=== PATIENT | male | born 1960 | race Caucasian/White ===

== ENCOUNTER 2016-12-03 11:02 | Outpatient (CLI) | payer OTHER | END 2016-12-03 23:00 | LOC: LAB SRH 11:02 | DX: N39.0 Urinary tract infection, site not specified (principal) | CPT/HCPCS: 90004 ==

== ENCOUNTER 2016-12-03 11:05 | Outpatient (CLI) | payer OTHER | END 2016-12-03 23:00 | LOC: LAB SRH 11:05 | DX: M54.5 Low back pain (principal) | CPT/HCPCS: 92630 ==

== ENCOUNTER 2016-12-10 14:02 | Outpatient (CLI) | payer OTHER | END 2016-12-10 23:00 | LOC: LAB SRH 14:02 | DX: N30.01 Acute cystitis with hematuria (principal) | CPT/HCPCS: 90469 ==

== ENCOUNTER 2017-01-21 21:49 | Emergency (ER) | payer OTHER ==
--- NOTE | 2017-01-21 23:48 | ED CLINICAL REPORT ---
Clinical Report - Physicians/Mid Levels [facility] [address] [place] [address] 01/21/2017 22:14 [id number] Time Seen: 22:23 Jan 21 2017. Arrived- By private vehicle. Historian- patient. CPT: ER phys charges level 3 (#[id number]). HISTORY OF PRESENT ILLNESS Chief Complaint: catheter leaking. This started today and is still present. At its maximum, severity described as moderate. When seen in the E.D., severity described as moderate. Modifying factors. Not worsened by anything. Not relieved by anything. No current or associated symptoms. Similar symptoms previously: As bad. Diagnosis: (failed west.). Recent medical care: Not recently seen/assessed. REVIEW OF SYSTEMS No fever, sore throat, sinus drainage, nasal congestion or cough. No difficulty breathing, chest pain, abdominal pain, nausea or vomiting. No diarrhea, bloody stools, chills, difficulty with urination or skin rash. No back pain or calf pain. All systems otherwise negative, except as recorded above. PAST HISTORY Quadraplegia. Allergic Reaction. Diabetes Mellitus. Diabetes Mellitus Type 2. West Catheter. UTI - Urinary Tract Infection. Urinary Retention. Nerve Injury. Hypertension. Quadriplegic. Headache. Depression. Immunizations. West Catheter Replacement. Pneumonia. C2 fracture-T. --22:18 Martin Espinoza R.N. ADDITIONAL SURGERIES: Back Surgery. Knee Surgery. Neck Surgery. Nerve transpant right arm. Rhinoplasty. Shoulder Surgery. Medications: SUMAtriptan Succinate Oral (Tablet 100 mg), 3x a day as needed. Wellbutrin Oral 150 mg, daily (ER). Baclofen Oral. DULoxetine HCl Oral. HydrALAZINE HCl Oral (Tablet 10 mg), TID. LevETIRAcetam Oral 500 mg, 2x a day. Lidoderm External. Lyrica Oral (Capsule 300 mg), BID. MetFORMIN HCl Oral 1000MG, 2x a day. Nortriptyline HCl Oral (Capsule 25 mg) 1 capsule, at bedtime. OxyCODONE HCl Oral 20 mg, as needed. Allergies: No Known Drug Allergy. SOCIAL HISTORY No alcohol use or drug use. ADDITIONAL NOTES The nursing notes have been reviewed. PHYSICAL EXAM Vital Signs: 01/21/2017 22:16 BP: 83/48. HR: 81. RR: 20. O2 saturation: 91%. Temp: 98.3 F. Pain level now: 0/10. Appearance: Alert. No acute distress. CVS: Normal heart rate and rhythm. Respiratory: No respiratory distress. Abdomen: Nontender. (Suprapubic catheter. Leaking around catheter.). Back: Normal inspection. No CVA tenderness. Skin: No rash. Neuro: Oriented X 3. PROGRESS AND PROCEDURES Course of Care: Last catheter placed a week ago. Usually has to change catheters about every month or two. RN is able to flush the catheter with good return. Bladder scan shows no urine in bladder. RN notes that the obstruction is functional and related to the position of the patient. Patient/family counseled. Disposition: Discharged. Condition: stable and improved. CLINICAL IMPRESSION Obstructed west resolved. INSTRUCTIONS Drink plenty of fluids. Warnings: GENERAL WARNINGS: Return or contact your physician immediately if your condition worsens or changes unexpectedly, if not improving as expected, or if other problems arise. Your Current Medications: CONTINUE TAKING THE FOLLOWING MEDICATIONS: Baclofen Oral. DULoxetine HCl Oral. HydrALAZINE HCl Oral : Tablet 10 mg, TID. LevETIRAcetam Oral : 500 mg 2x a day. Lidoderm External. Lyrica Oral : Capsule 300 mg, BID. MetFORMIN HCl Oral : 1000MG 2x a day. Nortriptyline HCl Oral : Capsule 25 mg, 1 capsule at bedtime. OxyCODONE HCl Oral : 20 mg, prn. SUMAtriptan Succinate Oral : Tablet 100 mg, 3x a day, prn. Wellbutrin Oral : 150 mg daily, ER. Follow-up: Follow up with your doctor as needed. Understanding of the discharge instructions verbalized by patient and family. (Electronically signed by Daniel Evans MD 01/24/2017 11:19)
--- NOTE | 2017-01-21 23:48 | ED CLINICAL REPORT ---
Clinical Report - Physicians/Mid Levels [facility] [address] [place] [address] 01/21/2017 22:14 [id number] Time Seen: 22:23 Jan 21 2017. Arrived- By private vehicle. Historian- patient. CPT: ER phys charges level 3 (#[id number]). HISTORY OF PRESENT ILLNESS Chief Complaint: catheter leaking. This started today and is still present. At its maximum, severity described as moderate. When seen in the E.D., severity described as moderate. Modifying factors. Not worsened by anything. Not relieved by anything. No current or associated symptoms. Similar symptoms previously: As bad. Diagnosis: (failed west.). Recent medical care: Not recently seen/assessed. REVIEW OF SYSTEMS No fever, sore throat, sinus drainage, nasal congestion or cough. No difficulty breathing, chest pain, abdominal pain, nausea or vomiting. No diarrhea, bloody stools, chills, difficulty with urination or skin rash. No back pain or calf pain. All systems otherwise negative, except as recorded above. PAST HISTORY Quadraplegia. Allergic Reaction. Diabetes Mellitus. Diabetes Mellitus Type 2. West Catheter. UTI - Urinary Tract Infection. Urinary Retention. Nerve Injury. Hypertension. Quadriplegic. Headache. Depression. Immunizations. West Catheter Replacement. Pneumonia. C2 fracture-T. --22:18 Martin Espinoza R.N. ADDITIONAL SURGERIES: Back Surgery. Knee Surgery. Neck Surgery. Nerve transpant right arm. Rhinoplasty. Shoulder Surgery. Medications: SUMAtriptan Succinate Oral (Tablet 100 mg), 3x a day as needed. Wellbutrin Oral 150 mg, daily (ER). Baclofen Oral. DULoxetine HCl Oral. HydrALAZINE HCl Oral (Tablet 10 mg), TID. LevETIRAcetam Oral 500 mg, 2x a day. Lidoderm External. Lyrica Oral (Capsule 300 mg), BID. MetFORMIN HCl Oral 1000MG, 2x a day. Nortriptyline HCl Oral (Capsule 25 mg) 1 capsule, at bedtime. OxyCODONE HCl Oral 20 mg, as needed. Allergies: No Known Drug Allergy. SOCIAL HISTORY No alcohol use or drug use. ADDITIONAL NOTES The nursing notes have been reviewed. PHYSICAL EXAM Vital Signs: 01/21/2017 22:16 BP: 83/48. HR: 81. RR: 20. O2 saturation: 91%. Temp: 98.3 F. Pain level now: 0/10. Appearance: Alert. No acute distress. CVS: Normal heart rate and rhythm. Respiratory: No respiratory distress. Abdomen: Nontender. (Suprapubic catheter. Leaking around catheter.). Back: Normal inspection. No CVA tenderness. Skin: No rash. Neuro: Oriented X 3. PROGRESS AND PROCEDURES Course of Care: Last catheter placed a week ago. Usually has to change catheters about every month or two. RN is able to flush the catheter with good return. Bladder scan shows no urine in bladder. RN notes that the obstruction is functional and related to the position of the patient. Patient/family counseled. Disposition: Discharged. Condition: stable and improved. CLINICAL IMPRESSION Obstructed west resolved. INSTRUCTIONS Drink plenty of fluids. Warnings: GENERAL WARNINGS: Return or contact your physician immediately if your condition worsens or changes unexpectedly, if not improving as expected, or if other problems arise. Your Current Medications: CONTINUE TAKING THE FOLLOWING MEDICATIONS: Baclofen Oral. DULoxetine HCl Oral. HydrALAZINE HCl Oral : Tablet 10 mg, TID. LevETIRAcetam Oral : 500 mg 2x a day. Lidoderm External. Lyrica Oral : Capsule 300 mg, BID. MetFORMIN HCl Oral : 1000MG 2x a day. Nortriptyline HCl Oral : Capsule 25 mg, 1 capsule at bedtime. OxyCODONE HCl Oral : 20 mg, prn. SUMAtriptan Succinate Oral : Tablet 100 mg, 3x a day, prn. Wellbutrin Oral : 150 mg daily, ER. Follow-up: Follow up with your doctor as needed. Understanding of the discharge instructions verbalized by patient and family. (Electronically signed by Daniel Evans MD 01/24/2017 11:19)
--- NOTE | 2017-01-21 23:48 | ED NURSING NOTES ---
Clinical Report - Nurses [facility] [address] [place] [address] 01/21/2017 22:14 [id number] Triage time 22:17. Acuity: LEVEL 3. Chief Complaint: (catheter leaking since this AM). WEI COMA SCORE: Wei Coma Scale: 15- eyes open spontaneously (4); best verbal response- oriented x 4 (5); best motor response- obeys commands (6). --22:25 Martin Espinoza R.N. 22:16 01/21/17. BP: 83/48 (large adult cuff) taken on the right arm. HR: 81. RR: 20. O2 saturation: 91% on room air. Temp: 98.3 F (oral). Pain level now: 0/10. --22:25 Martin Espinoza R.N. 22:29 01/21/17. O2 saturation: 94% on nasal cannula at 3 liters/minute. --22:31 Martin Espinoza R.N. Weight: 111.1 kg stated. Height/Length: 71 inches Per Patient. BMI: 34.2. --22:19 Martin Espinoza R.N. Medications Baclofen Oral. DULoxetine HCl Oral. HydrALAZINE HCl Oral (Tablet 10 mg), TID. LevETIRAcetam Oral 500 mg, 2x a day. Lidoderm External. Lyrica Oral (Capsule 300 mg), BID. MetFORMIN HCl Oral 1000MG, 2x a day. Nortriptyline HCl Oral (Capsule 25 mg) 1 capsule, at bedtime. OxyCODONE HCl Oral 20 mg, as needed. --22:18 Martin Espinoza R.N. SUMAtriptan Succinate Oral (Tablet 100 mg), 3x a day as needed. Wellbutrin Oral 150 mg, daily (ER). --22:18 Martin Espinoza R.N. Allergies No Known Drug Allergy. --22:18 Martin Espinoza R.N. History Arrived by EMS. Historian: patient. Accompanied by lawn caretaker. This started today. ( suprapublic catheter in place, leaking around catheter site since this AM). Treatment CAMPER ASSEMBLER: None. PAST MEDICAL HX: Diabetes mellitus. SOCIAL HX: Never smoker. Alcohol use. History of occasional drug use: marijuana. ABUSE ASSESSMENT: No report of abuse. SELF HARM ASSESSMENT: A self harm assessment was performed. The patient answered "no" to the question "Have you recently felt down, depressed, or hopeless?", "Have you noticed less interest or pleasure in doing things?", "Do you have thoughts of harming or killing yourself?", "Are you here because you tried to hurt yourself?", "Have you ever tried to hurt yourself before today?" and "Have you recently had thoughts about harming or killing others?". FALL RISK ASSESSMENT: Fall risk assessment completed. No fall risk identified. LEARNING NEEDS ASSESSMENT: The learning needs assessment revealed no barriers. --22:25 Martin Espinoza R.N. PROBLEMS: Allergic Reaction. Diabetes Mellitus. Diabetes Mellitus Type 2. West Catheter. UTI - Urinary Tract Infection. Urinary Retention. Nerve Injury. Hypertension. Quadriplegic. Headache. Depression. Immunizations. West Catheter Replacement. Pneumonia. C2 fracture-T. --22:18 Martin Espinoza R.N. ADDITIONAL SURGERIES: Back Surgery. Knee Surgery. Neck Surgery. Nerve transpant right arm. Rhinoplasty. Shoulder Surgery. --22:18 Martin Espinoza R.N. Interventions ID band on patient. To treatment room. --22:25 Martin Espinoza R.N. PHYSICAL ASSESSMENT 22:38 01/21/17. BP: 98/70 (large adult cuff) taken on the right arm, manually, while sitting. ED physician notified. HR: 75. RR: 18. O2 saturation: 96% on room air. --22:39 Martin Espinoza R.N. ( Repositioned patient and 100 ml urine freely flowed from catheter. no apparent leak currently. Caregiver states that the west bag was empty prior to arrival, 400ml urine currently in the west bag.). --22:57 Martin Espinoza R.N. GI / : ( Bladder Scan resulted = 0ml in bladder. Flushed west with 50ml sterile saline, 50 ml immediately drained from catheter. Reported to physician.). --23:17 Martin Espinoza R.N. NURSING PROGRESS NOTES ( West flushed a second time, with 50ml sterile saline without resistance. 50ml of fluid immediately returned flowing freely.). --23:47 Martin Espinoza R.N. ( Correction: "west" referred to herein is actually a suprapubic catheter. Patient does not have a west. Reported status of the catheter to Dr. Evans.). --23:49 Martin Espinoza R.N. DISPOSITION / DISCHARGE Condition at departure: stable. Learning barriers present. Discharge instructions provided and reviewed with the caregiver and patient. Treatments reviewed. Reviewed referrals for followup. Patient verbalized understanding. Written instructions provided in Georgian. Caregiver verbalized understanding. The patient was discharged home and accompanied by S transport, caregiver. He left the Emergency Department via ambulance and on a stretcher. Driving (EMS/S transport). --00:39 Martin Espinoza R.N. 00:37 01/22/17. BP: 96/64 taken on the right arm, manually. HR: 77. RR: 20. O2 saturation: 97% on nasal cannula. O2 started via nasal cannula at 2 liters/minute. --00:39 Martin Espinoza R.N. Locked/Released at 01/22/2017 0:39 by Martin Espinoza R.N.
--- NOTE | 2017-01-21 23:48 | ED NURSING NOTES ---
Clinical Report - Nurses [facility] [address] [place] [address] 01/21/2017 22:14 [id number] Triage time 22:17. Acuity: LEVEL 3. Chief Complaint: (catheter leaking since this AM). WEI COMA SCORE: Wei Coma Scale: 15- eyes open spontaneously (4); best verbal response- oriented x 4 (5); best motor response- obeys commands (6). --22:25 Martin Espinoza R.N. 22:16 01/21/17. BP: 83/48 (large adult cuff) taken on the right arm. HR: 81. RR: 20. O2 saturation: 91% on room air. Temp: 98.3 F (oral). Pain level now: 0/10. --22:25 Martin Espinoza R.N. 22:29 01/21/17. O2 saturation: 94% on nasal cannula at 3 liters/minute. --22:31 Martin Espinoza R.N. Weight: 111.1 kg stated. Height/Length: 71 inches Per Patient. BMI: 34.2. --22:19 Martin Espinoza R.N. Medications Baclofen Oral. DULoxetine HCl Oral. HydrALAZINE HCl Oral (Tablet 10 mg), TID. LevETIRAcetam Oral 500 mg, 2x a day. Lidoderm External. Lyrica Oral (Capsule 300 mg), BID. MetFORMIN HCl Oral 1000MG, 2x a day. Nortriptyline HCl Oral (Capsule 25 mg) 1 capsule, at bedtime. OxyCODONE HCl Oral 20 mg, as needed. --22:18 Martin Espinoza R.N. SUMAtriptan Succinate Oral (Tablet 100 mg), 3x a day as needed. Wellbutrin Oral 150 mg, daily (ER). --22:18 Martin Espinoza R.N. Allergies No Known Drug Allergy. --22:18 Martin Espinoza R.N. History Arrived by EMS. Historian: patient. Accompanied by energy technician. This started today. ( suprapublic catheter in place, leaking around catheter site since this AM). Treatment CARDIOPULMONARY TECHNOLOGIST: None. PAST MEDICAL HX: Diabetes mellitus. SOCIAL HX: Never smoker. Alcohol use. History of occasional drug use: marijuana. ABUSE ASSESSMENT: No report of abuse. SELF HARM ASSESSMENT: A self harm assessment was performed. The patient answered "no" to the question "Have you recently felt down, depressed, or hopeless?", "Have you noticed less interest or pleasure in doing things?", "Do you have thoughts of harming or killing yourself?", "Are you here because you tried to hurt yourself?", "Have you ever tried to hurt yourself before today?" and "Have you recently had thoughts about harming or killing others?". FALL RISK ASSESSMENT: Fall risk assessment completed. No fall risk identified. LEARNING NEEDS ASSESSMENT: The learning needs assessment revealed no barriers. --22:25 Martin Espinoza R.N. PROBLEMS: Allergic Reaction. Diabetes Mellitus. Diabetes Mellitus Type 2. West Catheter. UTI - Urinary Tract Infection. Urinary Retention. Nerve Injury. Hypertension. Quadriplegic. Headache. Depression. Immunizations. West Catheter Replacement. Pneumonia. C2 fracture-T. --22:18 Martin Espinoza R.N. ADDITIONAL SURGERIES: Back Surgery. Knee Surgery. Neck Surgery. Nerve transpant right arm. Rhinoplasty. Shoulder Surgery. --22:18 Martin Espinoza R.N. Interventions ID band on patient. To treatment room. --22:25 Martin Espinoza R.N. PHYSICAL ASSESSMENT 22:38 01/21/17. BP: 98/70 (large adult cuff) taken on the right arm, manually, while sitting. ED physician notified. HR: 75. RR: 18. O2 saturation: 96% on room air. --22:39 Martin Espinoza R.N. ( Repositioned patient and 100 ml urine freely flowed from catheter. no apparent leak currently. Caregiver states that the west bag was empty prior to arrival, 400ml urine currently in the wset bag.). --22:57 Martin Espinoza R.N. GI / : ( Bladder Scan resulted = 0ml in bladder. Flushed west with 50ml sterile saline, 50 ml immediately drained from catheter. Reported to physician.). --23:17 Martin Espinoza R.N. NURSING PROGRESS NOTES ( West flushed a second time, with 50ml sterile saline without resistance. 50ml of fluid immediately returned flowing freely.). --23:47 Martin Espinoza R.N. ( Correction: "west" referred to herein is actually a suprapubic catheter. Patient does not have a west. Reported status of the catheter to Dr. Evans.). --23:49 Martin Espinoza R.N. DISPOSITION / DISCHARGE Condition at departure: stable. Learning barriers present. Discharge instructions provided and reviewed with the caregiver and patient. Treatments reviewed. Reviewed referrals for followup. Patient verbalized understanding. Written instructions provided in Portuguese. Caregiver verbalized understanding. The patient was discharged home and accompanied by S transport, caregiver. He left the Emergency Department via ambulance and on a stretcher. Driving (EMS/S transport). --00:39 Martin Espinoza R.N. 00:37 01/22/17. BP: 96/64 taken on the right arm, manually. HR: 77. RR: 20. O2 saturation: 97% on nasal cannula. O2 started via nasal cannula at 2 liters/minute. --00:39 Martin Espinoza R.N. Locked/Released at 01/22/2017 0:39 by Martin Espinoza R.N.
--- NOTE | 2017-01-24 11:19 | ED DISCHARGE INSTRUCTIONS ---
Patient: ABIEL CHISHOLM General Instructions [facility] VisitID: [id number] [place] [address] 56y, M Registration Date/Time: 01/21/2017 Obstructed west resolved. INSTRUCTIONS Drink plenty of fluids. Warnings: GENERAL WARNINGS: Return or contact your physician immediately if your condition worsens or changes unexpectedly, if not improving as expected, or if other problems arise. Your Current Medications: CONTINUE TAKING THE FOLLOWING MEDICATIONS: Baclofen Oral. DULoxetine HCl Oral. HydrALAZINE HCl Oral : Tablet 10 mg, TID. LevETIRAcetam Oral : 500 mg 2x a day. Lidoderm External. Lyrica Oral : Capsule 300 mg, BID. MetFORMIN HCl Oral : 1000MG 2x a day. Nortriptyline HCl Oral : Capsule 25 mg, 1 capsule at bedtime. OxyCODONE HCl Oral : 20 mg, prn. SUMAtriptan Succinate Oral : Tablet 100 mg, 3x a day, prn. Wellbutrin Oral : 150 mg daily, ER. Follow-up: Follow up with your doctor as needed. Understanding of the discharge instructions verbalized by patient and family. (Electronically signed by Daniel Evans MD 01/24/2017 11:19)
--- NOTE | 2017-01-24 11:19 | ED DISCHARGE INSTRUCTIONS ---
Patient: ABIEL CHISHOLM General Instructions [facility] VisitID: [id number] [place] [address] 56y, M Registration Date/Time: 01/21/2017 Obstructed west resolved. INSTRUCTIONS Drink plenty of fluids. Warnings: GENERAL WARNINGS: Return or contact your physician immediately if your condition worsens or changes unexpectedly, if not improving as expected, or if other problems arise. Your Current Medications: CONTINUE TAKING THE FOLLOWING MEDICATIONS: Baclofen Oral. DULoxetine HCl Oral. HydrALAZINE HCl Oral : Tablet 10 mg, TID. LevETIRAcetam Oral : 500 mg 2x a day. Lidoderm External. Lyrica Oral : Capsule 300 mg, BID. MetFORMIN HCl Oral : 1000MG 2x a day. Nortriptyline HCl Oral : Capsule 25 mg, 1 capsule at bedtime. OxyCODONE HCl Oral : 20 mg, prn. SUMAtriptan Succinate Oral : Tablet 100 mg, 3x a day, prn. Wellbutrin Oral : 150 mg daily, ER. Follow-up: Follow up with your doctor as needed. Understanding of the discharge instructions verbalized by patient and family. (Electronically signed by Daniel Evans MD 01/24/2017 11:19)
--- NOTE | 2017-01-24 11:19 | ED MAR SUMMARY ---
..... Medication Administration Record [facility] [address] [place], [place] [id number] Patient: ABIEL CHISHOLM Visit ID: [id number] 56y, M Weight: 111.1 kg Height/Length: 71 in BMI: 34.2 ALLERGIES: No Known Drug Allergy
--- NOTE | 2017-01-24 11:19 | ED MAR SUMMARY ---
..... Medication Administration Record [facility] [address] [place], [place] [id number] Patient: ABIEL CHISHOLM Visit ID: [id number] 56y, M Weight: 111.1 kg Height/Length: 71 in BMI: 34.2 ALLERGIES: No Known Drug Allergy
--- NOTE | 2017-01-24 11:19 | ED MED RECONCILIATION SUMMARY ---
Patient: ABIEL CHISHOLM Medication Reconciliation Report [facility] VisitID: [id number] [address] [place] [address] 56y, M Registration Date/Time: 01/21/2017 Weight: 111.1 kg Height/Length: 71 in. BMI: 34.2 ALLERGIES: No Known Drug Allergy The patient's Home Medications are listed below: CONTINUE TAKING THE FOLLOWING MEDICATIONS: Baclofen Oral DULoxetine HCl Oral HydrALAZINE HCl Oral (10 mg), TID LevETIRAcetam Oral 500 mg, 2x a day Lidoderm External Lyrica Oral (300 mg), BID MetFORMIN HCl Oral 1000MG, 2x a day Nortriptyline HCl Oral (25 mg) 1 capsule, at bedtime OxyCODONE HCl Oral 20 mg SUMAtriptan Succinate Oral (100 mg), 3x a day Wellbutrin Oral 150 mg, daily, ER The source(s) of the original Home Medication information: Not obtained. The following Medications were given to the patient in the Emergency Department: None. The following Medications were prescribed to the patient: None.
--- NOTE | 2017-01-24 11:19 | ED MED RECONCILIATION SUMMARY ---
Patient: ABIEL CHISHOLM Medication Reconciliation Report [facility] VisitID: [id number] [address] [place] [address] 56y, M Registration Date/Time: 01/21/2017 Weight: 111.1 kg Height/Length: 71 in. BMI: 34.2 ALLERGIES: No Known Drug Allergy The patient's Home Medications are listed below: CONTINUE TAKING THE FOLLOWING MEDICATIONS: Baclofen Oral DULoxetine HCl Oral HydrALAZINE HCl Oral (10 mg), TID LevETIRAcetam Oral 500 mg, 2x a day Lidoderm External Lyrica Oral (300 mg), BID MetFORMIN HCl Oral 1000MG, 2x a day Nortriptyline HCl Oral (25 mg) 1 capsule, at bedtime OxyCODONE HCl Oral 20 mg SUMAtriptan Succinate Oral (100 mg), 3x a day Wellbutrin Oral 150 mg, daily, ER The source(s) of the original Home Medication information: Not obtained. The following Medications were given to the patient in the Emergency Department: None. The following Medications were prescribed to the patient: None.
== END 2017-01-22 00:39 | disposition home or self-care (01) ==
LOC: ED SRH 21:49
DX: T83.098D Other mechanical complication of other urinary catheter, subsequent encounter (principal); I10 Essential (primary) hypertension; E11.9 Type 2 diabetes mellitus without complications; Z79.84 Long term (current) use of oral hypoglycemic drugs; Z79.899 Other long term (current) drug therapy

== ENCOUNTER 2017-03-23 11:27 | Outpatient (CLI) | payer OTHER | END 2017-03-23 23:00 | LOC: LAB SRH 11:27 | DX: N30.00 Acute cystitis without hematuria (principal) | CPT/HCPCS: 90004; 90148; 90469 ==

== ENCOUNTER 2017-04-18 09:01 | Outpatient (CLI) | payer OTHER | END 2017-04-18 23:00 | disposition home or self-care (01) | LOC: LAB SRH 09:01 | DX: E11.65 Type 2 diabetes mellitus with hyperglycemia (principal); G89.29 Other chronic pain | CPT/HCPCS: 90074; 90100; 92690 ==